=== PATIENT | male | born 1945 | race Caucasian/White ===

== ENCOUNTER 2018-05-17 16:05 | Observation (INO) ==
[~2018-05-17 16:05] MED LIST: Insulin DETEMIR 100 UNIT/ML X5UNITS SQ SCH
[2018-05-17] MEDS ORDERED: 0.9 % Sodium Chloride 1,000 ML IVC ONE ×2 (16:21→17:18)
--- NOTE | 2018-05-17 16:21 | Emergency Department Note ---
Disposition Clinical Impression: Dehydration [id number] kidney injury Qualifiers: Acute renal failure type: unspecified Chronic kidney disease stage: unspecified stage Qualified Code(s): N17.9 - Acute kidney failure, unspecified; N18.9 - Chronic kidney disease, unspecified Disposition: Admitted As Inpatient Condition: Fair Altered Mental Status HPI - General Chief Complaint: ED General Medical Stated Complaint: decreased level of consciousness Time Seen by Provider: 05/17/18 16:06 Source: patient, family, EMS Mode of arrival: EMS Limitations: no limitations Nursing Notes Reviewed: Yes Vital Signs Reviewed: Yes - History of Present Illness HPI Narrative: Patient presents to the ED via EMS with report of a decreased level of consciousness. Per EMS on their arrival patient was somewhat slow to respond but mentation has been improving in route to the ED. He is an insulin dependent diabetic and glucose was 238. They state there was a home health care coordinator present when they arrived but they could not give any additional information other than the patient was a diabetic and was difficult to arouse today. On arrival patient is alert but slightly confused about the date. Does not recall EMS picking him up. He does report having a generalized headache which he has had for the past few days. He states he also had some lower abdominal pain earlier today that is now gone. He denies any nausea, vomiting, diarrhea or constipation. Last bowel movement was this morning. He reports chills but no fever. He reports a chronic cough as well as some rhinorrhea and sore throat. He reports shortness of breath but states this is chronic for him. He wears oxygen at home at night and as needed. Review of records shows that he has had a stroke in the past, CKD, hypertension, CARLA, CHF, diabetes and CAD. He has a pacemaker. - Related Data Home Medications Medication Instructions Recorded Confirmed Aspirin 81 mg PO DAILY 01/01/15 05/17/18 Atorvastatin 80 mg PO DAILY 01/01/15 05/17/18 Carvedilol [Coreg] 6.25 mg PO BIDWM 01/01/15 05/17/18 Clopidogrel [Plavix] 75 mg PO DAILY 01/01/15 05/17/18 Levemir 50 - 70 units SQ BID 01/01/15 05/17/18 Levothyroxine [Synthroid] 50 mcg PO QAM 01/01/15 05/17/18 Nitroglycerin [Nitrostat] 0.4 mg SL Q15MIN PRN 01/01/15 05/17/18 Insulin ASPART [NovoLOG] 12 - 32 units SQ TID 04/13/15 05/17/18 Citalopram [CeleXA] 20 mg PO DAILY 11/19/15 05/17/18 Furosemide [Lasix] 40 mg PO DAILY 11/19/15 05/17/18 Isosorbide MONOnitrate (24 HR) 30 mg PO DAILY 11/19/15 05/17/18 [Imdur] Ergocalciferol (VITAMIN D2) 2,000 unit PO DAILY 05/17/18 05/17/18 [Vitamin D2] Ferrous Sulfate [Iron] 325 mg PO DAILY 05/17/18 05/17/18 Oxygen 2.5 l IH HS 05/17/18 05/17/18 Previous Rx's Medication Instructions Recorded Ranolazine [Ranexa] 500 mg PO BID #60 tab.er.[id number] 09/04/15 Allergies Allergy/AdvReac Type Severity Reaction Status Date / Time Penicillins [PCN] Allergy See Verified 10/23/16 22:39 Comments Constitutional: Reports: chills. Denies: fever, weakness, weight change Eyes: Denies: eye pain, eye discharge, vision change ENT ED: Denies: ear pain, throat pain, dental pain, hearing loss, epistaxis, congestion, dysphagia Cardiovascular: Denies: chest pain, palpitations, dyspnea on exertion, edema, syncope Respiratory: Reports: as per HPI, cough, dyspnea. Denies: wheezes, hemoptysis, stridor Gastrointestinal: Reports: abdominal pain. Denies: nausea, vomiting, diarrhea, constipation, hematemesis, melena, hematochezia Genitourinary: Denies: urgency, dysuria, frequency, hematuria Musculoskeletal: Denies: back pain, neck pain, arthralgia, myalgia Integumentary: Denies: rash, abrasion, lesions Neurological: Denies: headache, weakness, numbness, paresthesias, confusion, abnormal gait, vertigo Psychiatric: Denies: anxiety, depression, suicidal thoughts, homicidal thoughts, auditory hallucinations, visual hallucinations Endocrine: Denies: fatigue Hematological/Lymphatic: Denies: easy bleeding, easy bruising Allergic/Immunologic: Denies: facial swelling, urticaria Past Medical History - Past Medical History Medical history: Reports: arthritis, atrial fibrillation, cardiomyopathy, CHF, COPD, coronary artery disease, CVA, diabetes, GERD, hyperlipidemia, hypertension, myocardial infarction, TIA Surgical history: Reports: angioplasty/stent, orthopedic, other, pacemaker/AICD Psychiatric history: Reports: anxiety, depression - Social History Smoking Status: Current some day smoker Smokeless Tobacco Status: No Alcohol use: Reports: none Drug use: Reports: none Physical Exam - General Limitations: no limitations General appearance: alert, in no apparent distress, obese - Head Head exam: atraumatic, normocephalic, normal inspection - Eye Eye exam: Present: normal appearance, PERRL, EOMI - ENT ENT exam: normal exam, normal oropharynx, mucous membranes moist - Neck Neck exam: Present: normal inspection, full ROM, trachea midline - Chest Chest inspection: Present: normal inspection, symmetric chest wall rise - Respiratory Respiratory exam: Present: normal lung sounds bilaterally - Cardiovascular Cardiovascular exam: Present: regular rate, normal rhythm, normal heart sounds - Abdominal Exam Abdominal exam: Present: soft, Non-Tender, normal bowel sounds. Absent: tenderness, distention, guarding, rebound, rigidity - Extremities Exam Extremities exam: Present: normal inspection, full ROM, normal capillary refill. Absent: tenderness, pedal edema - Back Exam Back exam: Present: normal inspection, full ROM. Absent: tenderness - Neurological Exam Neurological exam: Present: alert, oriented X3, CN II-XII intact. Absent: motor sensory deficit - Expanded Neurological Exam Patient oriented to: Present: person, place Speech: Present: fluid speech Motor strength - LUE: 5/5 Motor strength - RUE: 5/5 Motor strength - LLE: 5/5 Motor strength - RLE: 5/5 Coma Scale Eye Opening: Spontaneous Coma Scale Motor Response: Obeys Commands Coma Scale Verbal Response: Oriented Coma Scale Total: 15 - Psychiatric Psychiatric exam: Present: normal affect, normal mood - Skin Skin exam: Present: warm, dry, intact, normal color Course Course Narrative: Patient presents to the ED with report of decreased level of consciousness at home. EMS found him to be hypotensive but otherwise hemodynamically stable. On arrival here blood pressure still low at 77/45 but he is receiving a fluid bolus. EKG shows a paced rhythm. Physical exam is unremarkable with no focal neurologic deficits given his complaint of headache. I spoke to the patient's was right. She states that he was fine earlier this morning and was up and about the house. He later sat down in his recliner and then his was unable to get him to respond to her questions which is why she called EMS. She states that he has had "spells" like this in the past but they have never lasted very long and the patient would "snap out of it." She states he remains awake and alert but would not respond. She do not see any abnormal movements and indicates seizure activity. She states he has not started any new medications and far she knows he has taken all of his scheduled medicines today. He has not recently fallen or struck his head. She confirms that he did report a headache earlier today as well as some lower abdominal pain. She states his blood pressure has been low sometimes in the past but does not know why. We will give a fluid bolus, obtain head CT and chest x-ray as well as routine lab work. - Reevaluation(s) Reevaluation #1: Patient feeling better. Blood pressure has significant improved with last reading of 114/60. States he does not remember being brought in to the ED or what happened at home. He is complaining again of some intermittent abdominal discomfort. He had a normal bowel movement this morning. Still awaiting a urine sample. Patient is attempting to go at this time as he has had 2 L of fluid and should be able to urinate spontaneously. Creatinine is elevated above his baseline but the remainder of his labs are not acutely abnormal with evidence of chronic anemia. TSH is elevated and he is on Synthroid. Awaiting urinalysis results. I anticipate patient will need an overnight stay for continued IV fluids and blood pressure monitoring. Time: 18:42 Reevaluation #2: While patient's blood pressure has improved is still somewhat labile and has dropped into the 90s at times. Patient reports overall feeling better but given the evidence of acute kidney injury with the lower than normal blood pressure I feel that he would benefit from overnight observation with repeat lab work in the a.m. and continued blood pressure monitoring. Discussed my concerns with the patient and family and he is in agreement with being admitted. I spoke to the hospitalist on-call, Dr. Solano, who has agreed to accept the patient. Vital Signs Temperature 97.5 F L 05/17/18 16:06 Pulse Rate 60 05/17/18 16:06 Respiratory Rate 16 05/17/18 16:06 Blood Pressure 77/45 05/17/18 16:06 O2 Sat by Pulse Oximetry 98 05/17/18 16:06 Temperature 98.2 F 05/18/18 00:05 Pulse Rate 73 05/18/18 00:05 Respiratory Rate 18 05/18/18 00:05 Blood Pressure 109/56 05/18/18 00:05 O2 Sat by Pulse Oximetry 98 05/18/18 00:05 Oxygen Delivery Oxygen Delivery Room Air Altered Mental Status - Differential Diagnosis Likely: altered mental status, hyponatremia, subarachnoid hemorrhage, sepsis - Medical Records Medical records reviewed: Yes I reviewed the patient's medical records. - Lab Data Lab results reviewed: Yes I reviewed the patient's lab results. Result diagrams: 05/17/18 16:39 05/17/18 16:39 Lab Results 05/17/18 05/17/18 05/17/18 Range/Units 16:39 16:39 16:39 WBC 7.8 (4.3-11.1) K/mcL RBC 3.02 L (4.19-5.50) M/mcL Hgb 9.0 L (12.9-16.9) g/dL Hct 27.6 L (37.5-50.1) % MCV 91.4 (83.0-100.0) fL MCH 29.8 (28.0-33.3) pg MCHC 32.6 (31.6-35.5) g/dL RDW 15.2 H (11.5-14.5) % Plt Count 191 (140-400) K/mcL MPV 10.2 (9.4-12.4) fL Immature Gran % 0.5 (0-4) % Seg Neutrophils % 71.9 % Lymphocytes % 16.9 % Monocytes % 6.8 % Eosinophils % 3.3 % Basophils % 0.6 % Neutrophils # 5.6 (1.6-8.9) K/mcL Lymphocytes # 1.3 (0.6-4.6) K/mcL Monocytes # 0.5 (0.0-1.3) K/mcL Eosinophils # 0.3 (0.0-0.6) K/mcL Basophils # 0.1 (0.0-0.2) K/mcL PT 12.7 H (9.4-12.1) Seconds INR 1.1 APTT 32.5 (26.0-36.0) Seconds Sodium 136 (136-145) mEq/L Potassium 4.6 (3.5-5.1) mEq/L Chloride 104 (98-107) mEq/L Carbon Dioxide 24 (23-29) mEq/L BUN 25 H (8-23) mg/dL Creatinine 2.21 H (0.70-1.30) mg/dL Est GFR ( Amer) 36 L (> 60) Est GFR (Non-Af Amer) 29 L (> 60) BUN/Creatinine Ratio 11 (6-26) Glucose 207 H (70-105) mg/dL Calculated Osmolality 292 (280-300) Lactic Acid (0.5-2.2) mmol/L Calcium 8.3 L (8.6-10.3) mg/dL Total Bilirubin 0.4 (0.3-1.0) mg/dL Direct Bilirubin 0.1 (0.0-0.2) mg/dL Indirect Bilirubin 0.3 (0.0-1.2) mg/dL AST 10 L (13-39) Units/L ALT 8 (7-52) Units/L Alkaline Phosphatase 61 (34-104) Units/L Troponin I 0.03 (< 0.04) ng/mL B-Natriuretic Peptide (Less than 100) pg/mL Serum Total Protein 6.5 (6.4-8.9) g/dL Albumin 3.4 L (3.5-5.7) g/dL Globulin 3.1 (2.4-3.5) g/dL Albumin/Globulin Ratio 1.1 (1.1-2.2) TSH (0.340-5.600) mcIU/mL Urine Color (Yellow) Urine Clarity (Clear) Urine pH (5.0-8.0) pH Units Ur Specific [place] (1.010-1.025) Urine Protein (Neg-Trace) mg/dL Urine Glucose (UA) (Normal) mg/dL Urine Ketones (Negative) mg/dL Urine Blood (Negative) Urine Nitrite (Negative) Urine Bilirubin (Negative) Urine Urobilinogen (Normal) mg/dL Ur Leukocyte Esterase (Negative) Urine Microscopic RBC (0-3) per hpf Urine Microscopic WBC (0-3) per hpf Ur Squamous Epith Cells (None-Few) per lpf Urine Bacteria (None-Few) per hpf Ur Culture Indicated? (NO) Urine Opiates Screen (Dytssy=705) ng/mL Ur Oxycodone Screen (Cutoff= 100) ng/mL Ur Barbiturates Screen (Hhwrcb=680) ng/mL Ur Phencyclidine Scrn (Cutoff=25) ng/mL Ur Amphetamines Screen (Yechad=5924) ng/mL U Benzodiazepines Scrn (Dkepdw=095) ng/mL Urine Cocaine Screen (Cutoff= 300) ng/mL U Marijuana (THC) Screen (Cutoff = 50) ng/mL Ur Drug Screen Interp 05/17/18 05/17/18 05/17/18 Range/Units 16:39 16:39 16:39 WBC (4.3-11.1) K/mcL RBC (4.19-5.50) M/mcL Hgb (12.9-16.9) g/dL Hct (37.5-50.1) % MCV (83.0-100.0) fL MCH (28.0-33.3) pg MCHC (31.6-35.5) g/dL RDW (11.5-14.5) % Plt Count (140-400) K/mcL MPV (9.4-12.4) fL Immature Gran % (0-4) % Seg Neutrophils % % Lymphocytes % % Monocytes % % Eosinophils % % Basophils % % Neutrophils # (1.6-8.9) K/mcL Lymphocytes # (0.6-4.6) K/mcL Monocytes # (0.0-1.3) K/mcL Eosinophils # (0.0-0.6) K/mcL Basophils # (0.0-0.2) K/mcL PT (9.4-12.1) Seconds INR APTT (26.0-36.0) Seconds Sodium (136-145) mEq/L Potassium (3.5-5.1) mEq/L Chloride (98-107) mEq/L Carbon Dioxide (23-29) mEq/L BUN (8-23) mg/dL Creatinine (0.70-1.30) mg/dL Est GFR ( Amer) (> 60) Est GFR (Non-Af Amer) (> 60) BUN/Creatinine Ratio (6-26) Glucose (70-105) mg/dL Calculated Osmolality (280-300) Lactic Acid 1.4 (0.5-2.2) mmol/L Calcium (8.6-10.3) mg/dL Total Bilirubin (0.3-1.0) mg/dL Direct Bilirubin (0.0-0.2) mg/dL Indirect Bilirubin (0.0-1.2) mg/dL AST (13-39) Units/L ALT (7-52) Units/L Alkaline Phosphatase (34-104) Units/L Troponin I (< 0.04) ng/mL B-Natriuretic Peptide 273 H (Less than 100) pg/mL Serum Total Protein (6.4-8.9) g/dL Albumin (3.5-5.7) g/dL Globulin (2.4-3.5) g/dL Albumin/Globulin Ratio (1.1-2.2) TSH 12.537 H (0.340-5.600) mcIU/mL Urine Color (Yellow) Urine Clarity (Clear) Urine pH (5.0-8.0) pH Units Ur Specific [place] (1.010-1.025) Urine Protein (Neg-Trace) mg/dL Urine Glucose (UA) (Normal) mg/dL Urine Ketones (Negative) mg/dL Urine Blood (Negative) Urine Nitrite (Negative) Urine Bilirubin (Negative) Urine Urobilinogen (Normal) mg/dL Ur Leukocyte Esterase (Negative) Urine Microscopic RBC (0-3) per hpf Urine Microscopic WBC (0-3) per hpf Ur Squamous Epith Cells (None-Few) per lpf Urine Bacteria (None-Few) per hpf Ur Culture Indicated? (NO) Urine Opiates Screen (Xbexrg=630) ng/mL Ur Oxycodone Screen (Cutoff= 100) ng/mL Ur Barbiturates Screen (Huzpvc=873) ng/mL Ur Phencyclidine Scrn (Cutoff=25) ng/mL Ur Amphetamines Screen (Ugmfup=9492) ng/mL U Benzodiazepines Scrn (Quusri=272) ng/mL Urine Cocaine Screen (Cutoff= 300) ng/mL U Marijuana (THC) Screen (Cutoff = 50) ng/mL Ur Drug Screen Interp 05/17/18 05/17/18 Range/Units 19:00 19:15 WBC (4.3-11.1) K/mcL RBC (4.19-5.50) M/mcL Hgb (12.9-16.9) g/dL Hct (37.5-50.1) % MCV (83.0-100.0) fL MCH (28.0-33.3) pg MCHC (31.6-35.5) g/dL RDW (11.5-14.5) % Plt Count (140-400) K/mcL MPV (9.4-12.4) fL Immature Gran % (0-4) % Seg Neutrophils % % Lymphocytes % % Monocytes % % Eosinophils % % Basophils % % Neutrophils # (1.6-8.9) K/mcL Lymphocytes # (0.6-4.6) K/mcL Monocytes # (0.0-1.3) K/mcL Eosinophils # (0.0-0.6) K/mcL Basophils # (0.0-0.2) K/mcL PT (9.4-12.1) Seconds INR APTT (26.0-36.0) Seconds Sodium (136-145) mEq/L Potassium (3.5-5.1) mEq/L Chloride (98-107) mEq/L Carbon Dioxide (23-29) mEq/L BUN (8-23) mg/dL Creatinine (0.70-1.30) mg/dL Est GFR ( Amer) (> 60) Est GFR (Non-Af Amer) (> 60) BUN/Creatinine Ratio (6-26) Glucose (70-105) mg/dL Calculated Osmolality (280-300) Lactic Acid (0.5-2.2) mmol/L Calcium (8.6-10.3) mg/dL Total Bilirubin (0.3-1.0) mg/dL Direct Bilirubin (0.0-0.2) mg/dL Indirect Bilirubin (0.0-1.2) mg/dL AST (13-39) Units/L ALT (7-52) Units/L Alkaline Phosphatase (34-104) Units/L Troponin I (< 0.04) ng/mL B-Natriuretic Peptide (Less than 100) pg/mL Serum Total Protein (6.4-8.9) g/dL Albumin (3.5-5.7) g/dL Globulin (2.4-3.5) g/dL Albumin/Globulin Ratio (1.1-2.2) TSH (0.340-5.600) mcIU/mL Urine Color Yellow (Yellow) Urine Clarity Clear (Clear) Urine pH 7.0 (5.0-8.0) pH Units Ur Specific [place] 1.015 (1.010-1.025) Urine Protein 30 H (Neg-Trace) mg/dL Urine Glucose (UA) 100 H (Normal) mg/dL Urine Ketones Negative (Negative) mg/dL Urine Blood Negative (Negative) Urine Nitrite Negative (Negative) Urine Bilirubin Negative (Negative) Urine Urobilinogen Normal (Normal) mg/dL Ur Leukocyte Esterase Moderate H (Negative) Urine Microscopic RBC 0-3 (0-3) per hpf Urine Microscopic WBC 0-3 (0-3) per hpf Ur Squamous Epith Cells Few (None-Few) per lpf Urine Bacteria Few (None-Few) per hpf Ur Culture Indicated? YES A (NO) Urine Opiates Screen Negative (Owxwhe=843) ng/mL Ur Oxycodone Screen Negative (Cutoff= 100) ng/mL Ur Barbiturates Screen Negative (Sikvza=805) ng/mL Ur Phencyclidine Scrn Negative (Cutoff=25) ng/mL Ur Amphetamines Screen Negative (Nkwovh=2888) ng/mL U Benzodiazepines Scrn Negative (Utqhbn=189) ng/mL Urine Cocaine Screen Negative (Cutoff= 300) ng/mL U Marijuana (THC) Screen Negative (Cutoff = 50) ng/mL Ur Drug Screen Interp See Below - Radiology Data Radiology results reviewed: Yes I reviewed the patient's radiology results. ITS Impressions Chest X-Ray 05/17/18 16:21 IMPRESSION: Low lung volumes, with mild right basilar airspace opacity, atelectasis favored over pneumonia. D/ / 05/17/2018 17:08:01 Jesus Luque MD / igor Interpreting Provider: Jesus Luque MD Head CT 05/17/18 16:21 IMPRESSION: No acute intracranial abnormality. D/ / Casey Joiner MD / Casey Joiner MD Interpreting Provider: Casey Joiner MD - EKG Data EKG attestation: Yes I reviewed and interpreted this EKG. Rhythm: other (paced) Interpretation: no acute changes TPA Checklist - LKW: 3-4.5 hrs Add. Warnings/Precautions Patient/family understanding: The patient/family members have been counseled and understood the risk, benefit, and alternatives of treatment.
[2018-05-17 16:46] LABS: Basophils # 0.1 K/mcL (0.0-0.2); Basophils % 0.6 %; Eosinophils # 0.3 K/mcL (0.0-0.6); Eosinophils % 3.3 %; Hematocrit 27.6 % (37.5-50.1); Immature Granulocytes % 0.5 % (0-4); Lymphocytes # 1.3 K/mcL (0.6-4.6); Lymphocytes % 16.9 %; Mean Corpuscular HGB Conc 32.6 g/dL (31.6-35.5); Mean Corpuscular Hemoglobin 29.8 pg (28.0-33.3); Mean Corpuscular Volume 91.4 fL (83.0-100.0); Mean Platelet Volume 10.2 fL (9.4-12.4); Monocytes # 0.5 K/mcL (0.0-1.3); Monocytes % 6.8 %; Neutrophils # 5.6 K/mcL (1.6-8.9); Platelet Count 191 K/mcL (140-400); Red Blood Count 3.02 M/mcL (4.19-5.50); Red Cell Distribution Width 15.2 % (11.5-14.5); Segmented Neutrophils % 71.9 %
[2018-05-17 16:55] LABS: INR 1.1; Prothrombin Time 12.7 Seconds (9.4-12.1)
[2018-05-17 16:58] LABS: Activated Partial Thrombo Time 32.5 Seconds (26.0-36.0)
[2018-05-17 17:06] LABS: Albumin 3.4 g/dL (3.5-5.7); Albumin/Globulin Ratio 1.1 (1.1-2.2); Bilirubin,Direct 0.1 mg/dL (0.0-0.2); Bilirubin,Indirect 0.3 mg/dL (0.0-1.2); Bilirubin,Total 0.4 mg/dL (0.3-1.0); Calcium 8.3 mg/dL (8.6-10.3); Globulin 3.1 g/dL (2.4-3.5); Potassium 4.6 mEq/L (3.5-5.1); Total Protein 6.5 g/dL (6.4-8.9); Troponin I 0.03 ng/mL (< 0.04)
[2018-05-17 19:09] LABS: Bilirubin,Urine Negative (Negative); Blood,Urine Negative (Negative); Clarity,Urine Clear (Clear); Color,Urine Yellow (Yellow); Glucose,Urine (UA) 100 mg/dL (Normal); Ketones,Urine Negative (Negative); Leukocyte Esterase,Urine Moderate (Negative); Nitrite,Urine Negative (Negative); Protein,Urine 30 mg/dL (Neg-Trace); Specific Gravity,Urine 1.015 (1.010-1.025); Urobilinogen,Urine Normal (Normal)
[2018-05-17 19:29] LABS: Bacteria,Urine Few per hpf (None-Few); RBC,Urine 0-3 per hpf (0-3); Squamous Epithelial Cell,Urine Few per lpf (None-Few); WBC,Urine 0-3 per hpf (0-3)
[2018-05-17 19:45] LABS: Amphetamine Screen,Urine Negative ng/mL (Cutoff=1000); Barbiturate Screen,Urine Negative ng/mL (Cutoff=200); Benzodiazepines Screen,Urine Negative ng/mL (Cutoff=200); Cannabinoid Screen,Urine Negative ng/mL (Cutoff = 50); Cocaine Screen,Urine Negative ng/mL (Cutoff= 300); Opiate Screen,Urine Negative ng/mL (Cutoff=300); Phencyclidine Screen,Urine Negative ng/mL (Cutoff=25)
[2018-05-17] MEDS ORDERED: 0.9 % Sodium Chloride 1,000 ML IVC SCH (20:00)
[2018-05-17] MEDS ORDERED: Naloxone 0.4 MG/ML INJ IVP PRN ×2 (20:12→21:17)
[2018-05-17] MEDS ORDERED: *HR* Dextrose 50 % in Water (Syg) 50 ML SYRINGE IVP PRN ×2 (20:28→21:17)
[2018-05-17] MEDS ORDERED: D5% in Water 1,000 ML IVC PRN ×2 (20:28→21:17)
[2018-05-17] MEDS ORDERED: Dextrose Gel 15 GM/37.5 ML TUBE PO PRN ×4 (20:28→21:17)
[2018-05-17] MEDS ORDERED: Insulin LISPRO 300 UNITS/3 ML VIAL SQ SCH (21:00)
[2018-05-17] MEDS ORDERED: Nitroglycerin 0.4 MG TAB.SUBL SL PRN (21:17)
[2018-05-17] MEDS ORDERED: NON-FORMULARY MEDICATION 1 EACH EACH (Oxygen [Oxygen] 2.5 L) IH SCH (21:17)
[2018-05-17] MEDS ORDERED: Insulin DETEMIR 100 UNIT/ML per UNIT SQ ONE (21:30)
[2018-05-18] MEDS ORDERED: Insulin DETEMIR 100 UNIT/ML per UNIT SQ ONE (00:15)
[2018-05-18] MEDS: 0.9 % Sodium Chloride 1,000 ML IVC SCH ×2 (00:41→04:15)
[2018-05-18] MEDS: Ranolazine 500 MG TAB.ER.12H PO SCH ×2 (00:42→08:51)
[2018-05-18 04:54] LABS: Calcium 7.8 mg/dL (8.6-10.3); Potassium 5.3 mEq/L (3.5-5.1)
[2018-05-18 06:20] VITALS: BP 91/58
[2018-05-18] MEDS ORDERED: Levothyroxine 25 MCG TABLET PO SCH (06:30)
[2018-05-18] MEDS ORDERED: Insulin LISPRO 300 UNITS/3 ML VIAL SQ SCH ×5 (07:30→21:00)
[2018-05-18] MEDS ORDERED: Insulin DETEMIR 100 UNIT/ML X5UNITS SQ SCH (09:00)
[2018-05-18] MEDS ORDERED: Cholecalciferol (D-3) 1,000 UNIT TABLET PO SCH (09:00)
[2018-05-18] MEDS ORDERED: Aspirin 81 MG TAB.CHEW PO SCH (09:00)
[2018-05-18] MEDS ORDERED: Isosorbide MONOnitrate (24 HR) 30 MG TAB.ER.24H PO SCH (09:00)
--- NOTE | 2018-05-18 12:15 | Internal Med History&Physical ---
Date of Encounter: 05/18/18 Time of Encounter: 11:35 Assessment and Plan (1) Syncope Current visit: Yes Status: Acute Possibly due to hypotension. Initial blood pressure in emergency room was 77/45. No obvious seizure activity reported with present episode. He reports previous seizure 2013. He was admitted on telemetry which has remained stable. He has AICD. Qualifiers: Syncope type: unspecified Qualified Code(s): R55 - Syncope and collapse (2) Paroxysmal atrial fibrillation Current visit: No Status: Acute History of GI bleed on OAC. Continue aspirin and Plavix. (3) Ischemic cardiomyopathy Current visit: No Status: Chronic Status post LAD JENNIE. Continue Imdur, aspirin, and Plavix. Hold Coreg due to hypotension. (4) CKD (chronic kidney disease), stage IV Current visit: No Status: Acute As per bag liner (5) Anemia Current visit: No Status: Chronic Anemia testing 04/22/2018 showed iron 62, transferrin saturation 17%, transferrin 259, ferritin 74, B12 432. Qualifiers: Anemia type: unspecified type Qualified Code(s): D64.9 - Anemia, unspeci fied (6) Hypothyroidism Current visit: Yes Status: Acute TSH in emergency room elevated at 12.537. He denies missing significant number of doses of Synthroid. Synthroid dose will be increased to 100 g daily. Qualifiers: Hypothyroidism type: unspecified Qualified Code(s): E03.9 - Hypothyroidism, unspecified (7) Diabetes mellitus Current visit: No Status: Acute Hemoglobin A1c was 9.5% on 04/22/2018. Qualifiers: Diabetes mellitus type: type 2 Diabetes mellitus complication status: with kidney complications Diabetes mellitus complication detail: with chronic kidney disease Chronic kidney disease stage: stage 4 (severe) Qualified Code(s): E11.22 - Type 2 diabetes mellitus with diabetic chronic kidney disease; N18.4 - Chronic kidney disease, stage 4 (severe); Z79.4 - group home (current) use of insulin (8) Hypertension Current visit: Yes Status: Chronic Hold Coreg because of hypotension Qualifiers: Hypertension type: essential hypertension Qualified Code(s): I10 - Essential (primary) hypertension Internal Medicine - H&P: HPI Chief complaint: syncope Admitted From: Emergency Dept Plans for Post Hospital Care: Home History of present illness: Mr. Cortez is a 72 year old male who came to emergency room after experiencing a syncopal episode at home. He reports he had ambulated to the living room and was sitting in a chair when he had gradual loss of consciousness. He did not have any near syncope symptoms while ambulating to the chair. A home health aide was present and the squad was called. Blood sugar was found to be 238. He was evaluated in emergency room and found to have hypotension with blood pressure 77/45. He was admitted to [facility] floor for ongoing care needs. He denies previous syncopal or near syncopal episodes. He has rare orthostatic symptoms on arising from a chair quickly. He typically ambulates with a cane or walker and states he has not fallen. He reports he had a seizure in 2013 with a fall causing right tibia and ankle fracture. He reports history of "mini strokes" but no large distribution strokes. He has macular degeneration and is legally blind. Past Med Surg Social Fam HX - Past Medical History Medical history: arthritis, atrial fibrillation, cardiomyopathy, CHF, COPD, coronary artery disease, CVA, diabetes, GERD, hyperlipidemia, hypertension, myocardial infarction, TIA Additional medical history: Heart Stents Psychiatric history: anxiety, depression - Past Surgical History Surgical History: angioplasty/stent, orthopedic, other, pacemaker/AICD Additional surgical history: Ankle Surgery - Social History Smoking Status: Current some day smoker Smokeless Tobacco Status: No Alcohol use: none Drug use: none - Family History Father Adopted: No Living Status: Hx Family Cardiac Disorders: Yes (LOW HEMOGLOBIN) Hx Family Respiratory Disorders: Yes Hx Family Cancer: No Hx Family GI Disorders: No Hx Family Endocrine Disorder: Yes Hx Family Neuromuscular Disorders: No Hx Family Neurologic Disorders: No Hx Family HEENT Disorders: No Hx Family Autoimmune Disorders: No Mother Living Status: Still Living Hx Family Cardiac Disorders: Yes Hx Family Respiratory Disorders: No Hx Family Cancer: Yes (colon) Hx Family GI Disorders: Yes (diverticulitis) Hx Family Endocrine Disorder: No Hx Family Neuromuscular Disorders: Yes (Parkinsons) Hx Family Neurologic Disorders: No Hx Family HEENT Disorders: No Hx Family Autoimmune Disorders: No Internal Medicine - H&P: Meds Aspirin 81 mg PO DAILY 01/01/15 [History] Atorvastatin 80 mg PO DAILY 01/01/15 [History] Carvedilol [Coreg] 6.25 mg PO BIDWM 01/01/15 [History] Clopidogrel [Plavix] 75 mg PO DAILY 01/01/15 [History] Levemir 50 - 70 units SQ BID 01/01/15 [History] Levothyroxine [Synthroid] 50 mcg PO QAM 01/01/15 [History] Nitroglycerin [Nitrostat] 0.4 mg SL Q15MIN PRN 01/01/15 [History] Insulin ASPART [NovoLOG] 12 - 32 units SQ TID 04/13/15 [History] Ranolazine [Ranexa] 500 mg PO BID #60 tab.er.12h 09/04/15 [Rx] Citalopram [CeleXA] 20 mg PO DAILY 11/19/15 [History] Furosemide [Lasix] 40 mg PO DAILY 11/19/15 [History] Isosorbide MONOnitrate (24 HR) [Imdur] 30 mg PO DAILY 11/19/15 [History] Ergocalciferol (VITAMIN D2) [Vitamin D2] 2,000 unit PO DAILY 05/17/18 [History] Ferrous Sulfate [Iron] 325 mg PO DAILY 05/17/18 [History] Oxygen 2.5 l IH HS 05/17/18 [History] Allergy/AdvReac Type Severity Reaction Status Date / Time Penicillins [PCN] Allergy See Verified 10/23/16 22:39 Comments All Systems PM: A 10-system review of systems was performed and is negative for pertinent findings except as documented above in the HPI. Review of systems: Gen.: His weight has increased from 136.8 kg on 09/04/2015 to 145.15 kg on admission now Cardiovascular: He has history of hypertension and paroxysmal atrial fibrillation and was previously on Xarelto but had GI bleed and is not anticoagulated presently. He has known ASHD with [facility] at [place] June 2014. There was attempted PTCA to mid LAD which was unsuccessful. He was transferred to [facility] where he had Rotablator/PCI of LAD with JENNIE. He has ischemic cardiomyopathy with LVEF of 35-40% on echocardiogram 03/10/2017. The interventricular septum and posterior wall thickness measurements were elevated at 1.30 and 1.20 cm respectively. There was LAE at 4.5 cm. He has had AICD placement. He denies DVT or pulmonary embolus. Respiratory: He has smoked cigars since age 16. He is uncertain if he has COPD and does not use home oxygen. He has CARLA and uses CPAP at bedtime. GI: He denies disorders of his liver gallbladder or exocrine pancreas : He has chronic kidney disease stage IV and follows with a [place] bag liner. He denies other kidney bladder prostate disorders. Neurologic: As per history of present illness Endocrine: He was diagnosed with DM over 50 years ago. Hemoglobin A1c was 9.5% on 04/22/2018. He has history of hypothyroidism and hyperlipidemia. Hematology/oncology: He has history of anemia. He denies malignancy or other blood disorders. Psychiatric: He has depression but denies anxiety or other mental health issues. [place] skeletal: He had tibia and ankle fracture from syncopal episode with fall in 2013. He has arthritis of his hands but denies other bone joint or muscle disorders. - Constitutional Vitals: Temp Pulse Resp BP Pulse Ox 98.2 F 89 18 91/58 96 05/18/18 06:19 05/18/18 06:19 05/18/18 06:19 05/18/18 06:19 05/18/18 06:19 Exam: Gen.: He is a well-developed overweight male sitting in a chair at bedside who appears in no acute distress HEENT: Head is atraumatic and normocephalic. Eyes: EOMI. There is no scleral icterus. Mouth: Mucosa is moist per Neck: There is no thyromegaly or adenopathy noted. Heart: Regular without murmurs gallops or ectopics Lungs: No wheezes or crackles are heard. Abdomen: Soft and nontender. Exam is limited because he is in the seated position. Extremities: His feet are warm to touch. He has trace to 1+ edema of the dorsum of the feet and lower anterior shins bilaterally. Neurologic: Mental status: He is talkative and a good historian. Cranial nerves: Smile is symmetric. Forehead wrinkles bilaterally. Tongue protrudes midline. EOMI. Motor: There is no pronator drift. Cerebellar: Finger to nose is intact bilaterally. Skin: Warm and dry Internal Med - H&P Results - Labs CBC & Chem 7: 05/17/18 16:39 05/18/18 04:14 Labs: Short CBC 05/17/18 Range/Units 16:39 WBC 7.8 (4.3-11.1) K/mcL Hgb 9.0 L (12.9-16.9) g/dL Hct 27.6 L (37.5-50.1) % Plt Count 191 (140-400) K/mcL Neutrophils # 5.6 (1.6-8.9) K/mcL BMP 05/17/18 05/18/18 16:39 04:14 Sodium 136 136 Potassium 4.6 5.3 H Chloride 104 106 Carbon Dioxide 24 26 BUN 25 H 26 H Creatinine 2.21 H 2.30 H Glucose 207 H 238 H Calcium 8.3 L 7.8 L Cardiac Enzymes 05/17/18 Range/Units 16:39 Troponin I 0.03 (< 0.04) ng/mL Liver Function 05/17/18 Range/Units 16:39 Total Bilirubin 0.4 (0.3-1.0) mg/dL Direct Bilirubin 0.1 (0.0-0.2) mg/dL AST 10 L (13-39) Units/L ALT 8 (7-52) Units/L Alkaline Phosphatase 61 (34-104) Units/L Albumin 3.4 L (3.5-5.7) g/dL Urine 05/17/18 Range/Units 19:00 Urine Color Yellow (Yellow) Urine Clarity Clear (Clear) Urine pH 7.0 (5.0-8.0) pH Units Ur Specific [place] 1.015 (1.010-1.025) Urine Protein 30 H (Neg-Trace) mg/dL Urine Glucose (UA) 100 H (Normal) mg/dL - Impressions ITS Impressions Chest X-Ray 05/17/18 16:21 IMPRESSION: Low lung volumes, with mild right basilar airspace opacity, atelectasis favored over pneumonia. D/ / 05/17/2018 17:08:01 Jesus Luque MD / igor Interpreting Provider: Jesus Luque MD Head CT 05/17/18 16:21 IMPRESSION: No acute intracranial abnormality. D/ / Casey Joiner MD / Casey Joiner MD Interpreting Provider: Casey Joiner MD - VTE Reasons for not Prescribing Prophylaxis: Treatment not Indicated - Low risk for VTE
--- NOTE | 2018-05-18 12:46 | Discharge Summary ---
Orders not resulted at time of discharge: Pending orders 05/17/18 16:21 ECG 12 lead ECG [ECG] Stat 05/17/18 19:00 Culture,Urine [RM] Stat Date of Encounter: 05/18/18 Time of Encounter: 11:35 - Discharge Diagnosis (1) Syncope Priority: Primary Status: Acute Qualifiers: Syncope type: unspecified Qualified Code(s): R55 - Syncope and collapse (2) Paroxysmal atrial fibrillation Priority: Secondary Status: Acute (3) Ischemic cardiomyopathy Priority: Secondary Status: Chronic (4) CKD (chronic kidney disease), stage IV Priority: Secondary Status: Acute (5) Anemia Priority: Secondary Status: Chronic Qualifiers: Anemia type: unspecified type Qualified Code(s): D64.9 - Anemia, unspecified (6) Hypothyroidism Priority: Secondary Status: Acute Qualifiers: Hypothyroidism type: unspecified Qualified Code(s): E03.9 - Hypothyroidism, unspecified (7) Diabetes mellitus Priority: Secondary Status: Acute Qualifiers: Diabetes mellitus type: type 2 Diabetes mellitus complication status: with kidney complications Diabetes mellitus complication detail: with chronic kidney disease Chronic kidney disease stage: stage 4 (severe) Qualified Code(s): E11.22 - Type 2 diabetes mellitus with diabetic chronic kidney disease; N18.4 - Chronic kidney disease, stage 4 (severe); 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 Cortez is a 72 year old male who came to emergency room after experiencing a syncopal episode at home. He reports he had ambulated to the living room and was sitting in a chair when he had gradual loss of consciousness. He did not have any near syncope symptoms while ambulating to the chair. A home health aide was present and the squad was called. Blood sugar was found to be 238. He was evaluated in emergency room and found to have hypotension with blood pressure 77/45. He was [facility] for ongoing care needs. Initial orders were written by the emergency room physician. I saw him on May 18 and performed a history and physical. He had no further syncopal or near syncopal episodes. Blood pressure jaswant from admission level but he remained borderline hypotensive. He will discontinue Coreg at discharge. His PCP can monitor blood pressure and heart rate. TSH returned elevated at 12.537. Synthroid dose will be increased to 100 g daily. His PCP can monitor labs. There were no other new problems and on May 18 he wished to be discharged home which I felt was reasonable. He will follow with his PCP Dr. Sarah within 1 week. - Time Spent with Patient Total time spent providing and/or coordinating discharge services: - Discharge Medications Prescriptions: Levothyroxine [Synthroid] 100 mcg PO 0630 365 Days tablet Home Medications: Aspirin 81 mg PO DAILY 01/01/15 [History] Atorvastatin 80 mg PO DAILY 01/01/15 [History] Clopidogrel [Plavix] 75 mg PO DAILY 01/01/15 [History] Levemir 50 - 70 units SQ BID 01/01/15 [History] Nitroglycerin [Nitrostat] 0.4 mg SL Q15MIN PRN 01/01/15 [History] Insulin ASPART [NovoLOG] 12 - 32 units SQ TID 04/13/15 [History] Ranolazine [Ranexa] 500 mg PO BID #60 tab.er.12h 09/04/15 [Rx] Citalopram [CeleXA] 20 mg PO DAILY 11/19/15 [History] Furosemide [Lasix] 40 mg PO DAILY 11/19/15 [History] Isosorbide MONOnitrate (24 HR) [Imdur] 30 mg PO DAILY 11/19/15 [History] Ergocalciferol (VITAMIN D2) [Vitamin D2] 2,000 unit PO DAILY 05/17/18 [History] Ferrous Sulfate [Iron] 325 mg PO DAILY 05/17/18 [History] Oxygen 2.5 l IH HS 05/17/18 [History] Levothyroxine [Synthroid] 100 mcg PO 0630 365 Days tablet 05/18/18 [Rx] Allergies/Adverse Reactions: Allergy/AdvReac Type Severity Reaction Status Date / Time Penicillins [PCN] Allergy See Verified 10/23/16 22:39 Comments Date of admission: 05/17/18 20:29 Primary care physician: Merlin Sarah, DO - Constitutional Vitals: Temp Pulse Resp BP Pulse Ox 98.2 F 89 18 91/58 96 05/18/18 06:19 05/18/18 06:19 05/18/18 06:19 05/18/18 06:19 05/18/18 06:19 - Patient Status Disposition: Home, Self-Care Condition: Fair - Discharge Instructions Follow Up With: Merlin Sarah DO [Primary Care Provider] - 1 week - Diet and Activity Activity: resume usual activities as tolerated Diet: diabetic diet - VTE Reasons for not Prescribing Prophylaxis: Treatment not Indicated - Low risk for VTE
--- NOTE | 2018-05-18 12:49 | Physician Discharge Referral ---
Home Health/Hosp Referral Info Transfer to: Home Health Attending Provider: Russ Provider in Charge Post Discharge: PCP ([place]) - Diagnosis (1) Syncope Priority: Primary Status: Acute (2) Paroxysmal atrial fibrillation Priority: Secondary Status: Acute (3) Ischemic cardiomyopathy Priority: Secondary Status: Chronic (4) CKD (chronic kidney disease), stage IV Priority: Secondary Status: Acute (5) Anemia Priority: Secondary Status: Chronic (6) Hypothyroidism Priority: Secondary Status: Acute (7) Diabetes mellitus Priority: Secondary Status: Acute (8) Hypertension Priority: Secondary Status: Chronic - Respiratory Orders Smoking Cessation: Smoking cessation has been advised. For more information, call the [place] Tobacco Quit Line at 9-889-OGCR-NOW. - Diet/Nutrition Diet/Nutrition Orders: No Concentrated Sweets - Activity Activity Orders: Walker - Services Needed Following services are medically necessary services: Nursing, Home Health Aide, Physical Therapy, Occupational Therapy - Transfer Medications Prescriptions: Levothyroxine [Synthroid] 100 mcg PO 0630 365 Days tablet Home Medications: Aspirin 81 mg PO DAILY 01/01/15 [History] Atorvastatin 80 mg PO DAILY 01/01/15 [History] Clopidogrel [Plavix] 75 mg PO DAILY 01/01/15 [History] Levemir 50 - 70 units SQ BID 01/01/15 [History] Nitroglycerin [Nitrostat] 0.4 mg SL Q15MIN PRN 01/01/15 [History] Insulin ASPART [NovoLOG] 12 - 32 units SQ TID 04/13/15 [History] Ranolazine [Ranexa] 500 mg PO BID #60 tab.er.12h 09/04/15 [Rx] Citalopram [CeleXA] 20 mg PO DAILY 11/19/15 [History] Furosemide [Lasix] 40 mg PO DAILY 11/19/15 [History] Isosorbide MONOnitrate (24 HR) [Imdur] 30 mg PO DAILY 11/19/15 [History] Ergocalciferol (VITAMIN D2) [Vitamin D2] 2,000 unit PO DAILY 05/17/18 [History] Ferrous Sulfate [Iron] 325 mg PO DAILY 05/17/18 [History] Oxygen 2.5 l IH HS 05/17/18 [History] Levothyroxine [Synthroid] 100 mcg PO 0630 365 Days tablet 05/18/18 [Rx] Allergies/Adverse Reactions: Allergy/AdvReac Type Severity Reaction Status Date / Time Penicillins [PCN] Allergy See Verified 10/23/16 22:39 Comments Certification: Further, I certify that my clinical findings support that this patient is homebound (i.e. absences from home require considerable and taxing effort and are for medical reasons or oriental orthodox services or infrequently or short duration when for other reasons) because: Homebound Reason: Leaving home requires considerable and taxing effort due to condition (Impaired walking ability, blindness, CHF) Attestation: My signature below is to certify that this patient is under my care and that I, or nurse practitioner, or a physician's administrative sales assistant working with me, has a [id number] encounter with this patient.
== END 2018-05-18 14:30 | disposition home or self-care (01) ==
LOC: EMEROOPIK 16:05 → INPPIK 16:05
PROVIDERS: ADMIT Internal Medicine; ATTEND Internal Medicine